=== PATIENT | male | born 1945 | race Caucasian/White ===

== ENCOUNTER → 2016-11-27 | Outpatient (CLI) | payer OTHER, MEDICARE ==
[2016-11-27 08:49] LABS: HEMATOCRIT 42.6 % (42.0-52.0); HEMOGLOBIN 14.6 g/dL (14.0-18.0); MEAN CORPUSCULAR HEMOGLOBIN 30.9 PG (27-31); MEAN CORPUSCULAR HGB CONC 34.3 g/dL (33-37); MEAN PLATELET VOLUME 10.2 FL (7.4-12.2); RDW COEFFICIENT OF VARIATION 12.7 % (11.5-14.5); RED BLOOD COUNT 4.73 10^6/uL (4.70-6.10); WHITE BLOOD COUNT 4.1 10^3/uL (4.8-10.8)
[2016-11-27 09:05] LABS: BILIRUBIN,TOTAL 0.6 mg/dL (0.3-1.2); BUN/CREATININE RATIO 13.57 (6-20); CALCIUM 9.4 mg/dL (8.7-10.7); CREATININE 1.4 mg/dL (0.70-1.50); LDL CHOLESTEROL,CALCULATED 76.2 mg/dL; POTASSIUM 4.9 meq/L (3.8-5.2); TOTAL PROTEIN 7.1 g/dL (6.1-8.0)
== END ==
LOC: MOB LAB 07:58
PROVIDERS: ATTEND Family Medicine
DX: E78.5 Hyperlipidemia, unspecified (principal); Z12.5 Encounter for screening for malignant neoplasm of prostate
CPT/HCPCS: 36415; 80053; 80061; 84443; 85027; G0103

== ENCOUNTER 2017-04-07 10:04 | Emergency (ER) | payer OTHER, MEDICARE ==
[2017-04-07 10:26] VITALS: RESP 16; TEMP 96.7
[2017-04-07 10:39] LABS: BILIRUBIN,URINE NEGATIVE (NEG); CLARITY,URINE CLEAR (CLEAR); COLOR,URINE YELLOW; GLUCOSE, URINE (UA) NEGATIVE (NEG); NITRATE,URINE NEGATIVE (NEG); OCCULT BLOOD,URINE NEGATIVE (NEG); PH,URINE 6.5 (5.0-8.5); PROTEIN,URINE NEGATIVE (NEG); UROBILINOGEN,URINE 0.2 mg/dL (0.2)
[2017-04-07 10:43] LABS: SQUAMOUS EPITHELIAL CELL,UR RARE; URINE SAMPLE TYPE VOIDED SPECIMEN; WBC,URINE 0-2
--- NOTE | 2017-04-07 11:12 | DI ---
HISTORY: Back pain. FINDINGS: There is advanced degeneration. The aorta is calcified. There is obliquity of the vertebr al bodies, which makes it difficult to assess. No obvious loss of vertebral body height. There is facet arthropathy. IMPRESSION: 1. Advanced degeneration. 2. Aorta is calcified. 3. In elderly patients with back pain, I would have a low threshold for CT or MRI.
--- NOTE | 2017-04-07 11:13 | PDOC ---
Back Pain / Injury HPI - General Chief Complaint: Neck / Back Complaint Stated Complaint: back pain Date Seen by Provider: 04/07/17 Time Seen by Provider: 10:10 Source: Patient, Spouse Exam Limitations: POSITIVE: No limitations Nurse's Notes Reviewed & Considered: Yes - History of Present Illness Initial Comments: The patient is a 71 year old male. Yesterday he was shoveling some rubble and as he torqued his torso he developed an abrupt onset of pain in the left paralumbar area and over the posterior superior iliac crest area. He states that his back pain in this area is exacerbated by bending and turning and walking and is relieved by lying down, especially flat on his back. Patient has no sensory, motor or radicular symptoms. No urinary symptoms. No GI or symptoms. No falls. Patient has a history of hypertension and states he had a heart attack in 2001 and subsequently had to coronary artery stents placed. He' s also had a laparotomy for "a twisted bowel", and subsequently had surgery for a postsurgical hernia repair. Body Location Affected: REPORTS: Back Timing: REPORTS: Abrupt Duration: <24 hours Severity: Moderate Quality: REPORTS: "Pain", Sharpness Context: REPORTS: Activity (Onset of pain was abruptly while he was shoveling up some rubble), Turning Location at Time of Onset: REPORTS: Home Modifying Factors: improves with: Lying down (Pain is relieved by lying down, especially flat on his back), Movement (Pain is exacerbated by bending and torsion of his torso) Associated Symptoms: REPORTS: Denies symptoms Similar Symptoms Previously: No Recent Care Received: REPORTS: Denies Any Prior Injuries Related to Current Complaint?: No - Patient Home Medications Home Medications: Home Medications Aspirin [Aspir 81] 81 mg PO BID #60 11/10/11 Lisinopril 1 tab PO DAILY #90 tab 11/27/16 Metoprolol Tartrate 1 tab PO BID #180 tab 11/27/16 Pantoprazole Sodium [Protonix] 1 tab PO BID #180 tab 11/27/16 Pravastatin Sodium [Pravachol] 1 tab PO DAILY #90 tab 11/27/16 Nitroglycerin 0.4 mg BUCCAL ONCE #25 tab 12/22/16 - Patient Allergies Allergies/Adverse Reactions: Allergies Allergy/AdvReac Type Severity Reaction Status Date / Time Penicillins AdvReac Intermediate DIZZINESS Verified 04/07/17 10:06 FAINTING Past Medical History - heen HEENT History: Denies History, Hard of Hearing, Deaf, Dentures/Partials Additional HEENT History: UPPERS AND LOWERS Cardiovascular History: Hypertension, Previous MO, Arrhythmia, Hyperlipidemia Additional Cardiovasular History: 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 2002- 2 STENTS PLACED FOR MO Respiratory History: Denies History, Snoring Gastrointestinal History: GERD, Diverticulitis, Peptic Ulcer Disease, GI Bleed Additional Gastrointestinal History: DYSPHAGIA Genitourinary History: Denies History Endocrine History: Denies History Musculoskeletal History: Arthritis, Back Injury Prosthesis or Implant: No Neurological History: Denies History Blood Disorders: Denies History Psychiatric History: Denies History History of Sexually Transmitted Diseases: No Male Reproductive History: Denies History Cancer History: Denies History In Past Year Been Physically Harmed or Verbally Threatened: No History of MDRO: No History of Other Communicable Diseases: No Tobacco Use: Former Smoker Alcohol Use: Occasionally Type of alcohol normally used: Beer Substance Use Type: None Previous Surgical History: Yes Type / Date of Surgery: COLONOSCOPY/ EXPLORATORY LAP/TWISTED BOWEL, STENTS FOR MO, TONSILLS, INCISIONAL HERNIA REPAIR, FOREIGN BODY REMOVAL EGD Anesthesia Reactions: No Malignant Hyperthermia: No Significant Family History: No pertinent family hx Past Medical History Reviewed: Reviewed - No Changes ROS - Limitations ROS Limitations: No Limitations Constitution: REPORTS: Denies Symptoms Cardiovascular: REPORTS: Denies Cardiac Symptoms Respiratory: REPORTS: Denies Resp Symptoms Neurological: REPORTS: Denies Neuro Symptoms Gastrointestinal: REPORTS: Denies GI Symptoms Endocrine: REPORTS: Denies Symptoms Musculoskeletal: REPORTS: Back Pain (Left lower paralumbar area and over the posterior superior iliac crest, left), Recent Injury (As above; see history of present illness.) Genitourinary: REPORTS: Denies Symptoms Eyes: REPORTS: Denies Symptoms ENT: REPORTS: Denies Symptoms Skin: REPORTS: Denies Skin Symptoms Lympathic: REPORTS: Denies Lympathic Symptoms Immunologic: POSITIVE: Denies Symptoms Psychiatric: POSITIVE: Denies Psych Symptoms Back Physical Assessment - General Appearance General Appearance: REPORTS: Alert, Cooperative, No Acute Distress, No Evidence of Trauma - Neck Neck: POSITIVE: Non Tender, Painless ROM, Trachea Midline, Nexus Criteria Negative - Respiratory / CVS Respiratory / CVS: POSITIVE: Chest Non Tender, No Ecchymosis, Breath Sounds Normal, No Respiratory Distress, Heart Sounds Normal, Regular Rate/Rhythm - Abdomen Abdomen: Soft: (All Quadrants), Normal Bowel Sounds: (All Quadrants), Denies Tenderness: (All Quadrants), No Splenomegaly: (All Quadrants), No Hepatomegaly: (All Quadrants), No Guarding: (All Quadrants), No Rebound: (All Quadrants), No Palpable Pulse: (All Quadrants), No Palpabale Mass: (All Quadrants), No Distention: (All Quadrants), No Rigidity: (All Quadrants) - Back Back: REPORTS: No CVA Tenderness, No Vertebral Tenderness, Muscle Spasm (Left paralumbar area), Limited ROM, See Diagram. DENIES: Non Tender (Somewhat tender on palpation over the posterior superior iliac crest, left, medially), Painless ROM (Flexion and torsion of lumbar area uncomfortable/painful), Vertebral Pt. Tenderness, CVA Tenderness (R), CVA Tenderness (L) - Skin Skin: REPORTS: Intact, Normal For Race, Warm, Dry, No Rash - Extremities Extremity Assessment: Non-Tender: (ALL), Normal ROM: (ALL), No Edema: (ALL), Normal Inspection: (ALL), No Swelling: (ALL) Musculoskeletal: REPORTS: Back Pain (Left paralumbar pain as above) Peripheral Pulses: Radial (R): 2+, Radial (L): 2+ - Neurological / Psychological Neuro / Psych: POSITIVE: Oriented X3, compression molding machine tender Normal As Tested, Motor Normal, Sensation Normal, Mood Appropriate, Affect Appropriate, Reflexes Normal Images - Complete Complete: 1 - Area of discomfort and some discomfort on palpation Back Progress - Results Reviewed by me Xrays/CTs/US Reviewed: Yes Discussed with Radiologist: No Radiology Findings: X-ray lumbosacral spine shows some degenerative changes and vascular calcifications. No compression fractures or other abnormalities appreciated. Radiologist interpretation pending. Lab Results Reviewed: Yes (urine analysis normal) Lab Results:: Laboratory Results 04/07/17 Range/Units 10:36 Ur Collection Type Voided specimen Urine Color Yellow Urine Clarity Clear (CLEAR) Urine pH 6.5 (5.0-8.5) Ur Specific [place] 1.020 (1.005-1.030) Urine Protein Negative (NEG) mg/dl Urine Glucose (UA) Negative (NEG) mg/dL Urine Ketones Negative (NEG) Urine Occult Blood Negative (NEG) Urine Nitrate Negative (NEG) Urine Bilirubin Negative (NEG) Urine Urobilinogen 0.2 (0.2) mg/dL Ur Leukocyte Esterase Negative (NEG) Urine RBC None (NONE) /hpf Urine WBC 0-2 (NONE) Ur Squamous Epith Cells Rare (NONE) Ur Renal Epithelial Cell None (NONE) Urine Crystals None Urine Bacteria None (NONE) Urine Casts None Urine Mucus None (NONE) Urine Trichomonas None (NONE) Urine Yeast None (NONE) - Patient's Progress Pain Medication Addressed: POSITIVE: Yes (Recommended Tylenol, 1000 mg every 6 hours as necessary) School/Work Release Addressed: POSITIVE: Not Applicable Re-Examine Time: 11:00 Status: POSITIVE: Unchanged, Re-Examined - Consult Counseled: POSITIVE: Patient, Family, RE: Lab Results, RE: Radiology Results, RE : DX, RE: Need for F/U Patient Care Time - Estimated PCT Patient Care Time (In Minutes): 30 Vital Signs - Recent Vital Signs Vital Signs: Vital Signs (Last 8 hours) Temp Pulse Resp BP Pulse Ox 04/07/17 10:13 96.7 F L 60 16 161/84 94 - VS Reviewed Vital Signs Reviewed: Yes Discharge Clinical Impression: Lumbar strain Discharge Disposition: Discharged to Home Condition: Good Patient Instructions Given at Discharge: Low Back Strain (ED) Additional Instructions: I believe you have strained a muscle in your low back. This can be a painful injury, but I believe you'll eventually be fine. Rest flat on your back for 24- 48 hours with a small pillow underneath your knees. This will place her back in a position of maximum relaxation. Tylenol, 2 extra strength tablets every 6 hours as necessary for pain and discomfort. Warm moist compresses applied to the lower back 3 or 4 times a day. Return here anytime if condition worsens in any way. Follow-up with your primary care provider in 3 or 4 days if not improving well. Follow Up With: MINERVA RAMACHANDRAN [Primary Care Provider] - (Instructions as above. Follow-up with your primary care provider. Return here anytime if condition worsens in anyway whatsoever.)
== END 2017-04-07 11:10 | disposition home or self-care (01) ==
LOC: ER 10:04
DX: S39.012A Strain of muscle, fascia and tendon of lower back, initial encounter (principal); I10 Essential (primary) hypertension; M54.5 Low back pain; Z95.2 Presence of prosthetic heart valve; X50.1XXA Overexertion from prolonged static or awkward postures, initial encounter
CPT/HCPCS: 72100; 81001; 99283

== ENCOUNTER → 2017-04-25 | Outpatient (CLI) | payer OTHER, MEDICARE | LOC: MMPC 11:11 | PROVIDERS: ATTEND Physician Assistant | DX: L98.8 Other specified disorders of the skin and subcutaneous tissue (principal) ==

== ENCOUNTER → 2017-05-21 | Outpatient (CLI) | payer OTHER, MEDICARE | LOC: RAD 11:02 | PROVIDERS: ATTEND Physician Assistant Medical | DX: M25.522 Pain in left elbow (principal); L08.89 Other specified local infections of the skin and subcutaneous tissue | CPT/HCPCS: 99213 ==

== ENCOUNTER → 2017-05-21 | Outpatient (CLI) | payer OTHER, MEDICARE | LOC: MMPC 09:00 | PROVIDERS: ATTEND Physician Assistant Medical | DX: L08.89 Other specified local infections of the skin and subcutaneous tissue (principal) ==

== ENCOUNTER → 2017-05-31 | Outpatient (CLI) | payer OTHER, MEDICARE | LOC: MMPC 09:00 | PROVIDERS: ATTEND Physician Assistant Medical | DX: L03.114 Cellulitis of left upper limb (principal) | CPT/HCPCS: 99213; G0463 ==

== ENCOUNTER 2017-06-13 09:55 | Emergency (ER) | payer OTHER, MEDICARE ==
[2017-06-13 10:11] VITALS: RESP 16; TEMP 95.6
--- NOTE | 2017-06-13 10:21 | PDOC ---
Skin Rash/Insect/Abscess HPI - General Chief Complaint: Laceration / Wound Stated Complaint: LEFT ELBOW PAIN Date Seen by Provider: 06/13/17 Time Seen by Provider: 10:17 - History of Present Illness Initial Comments: Patient is a very nice 71-year-old gentleman who presents to the emergency department for evaluation of a wound on his left elbow that is not healing. He states that he had an injury to this elbow with a splinter inside the elbow bursa right over the olecranon greater than 20 years ago. This had formed a cyst and he had a cyst removed at the urgent care. The stitches did not hold the open wound together in the middle part of the incision and he was left with an open healing wound. This has slowly been closing but continues to drain and he is concerned that it is not healing properly. It is not causing him any pain or fever there is no redness or tenderness Have you received a tetanus shot in the past 10 years?: Yes - Patient Home Medications Home Medications: Home Medications Aspirin [Aspir 81] 81 mg PO BID #60 11/10/11 Lisinopril 1 tab PO DAILY #90 tab 11/27/16 Metoprolol Tartrate 1 tab PO BID #180 tab 11/27/16 Pantoprazole Sodium [Protonix] 1 tab PO BID #180 tab 11/27/16 Pravastatin Sodium [Pravachol] 1 tab PO DAILY #90 tab 11/27/16 Nitroglycerin 0.4 mg BUCCAL ONCE #25 tab 12/22/16 Minocycline HCl 100 mg PO BID #20 cap 05/31/17 - Patient Allergies Allergies/Adverse Reactions: Allergies Allergy/AdvReac Type Severity Reaction Status Date / Time Penicillins AdvReac Intermediate DIZZINESS Verified 06/13/17 10:07 FAINTING Past Medical History - heen HEENT History: Denies History, Hard of Hearing, Deaf, Dentures/Partials Additional HEENT History: UPPERS AND LOWERS Cardiovascular History: Hypertension, Previous DC, Arrhythmia, Hyperlipidemia Additional Cardiovasular History: 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 2002- 2 STENTS PLACED FOR DC Respiratory History: Denies History, Snoring Gastrointestinal History: GERD, Diverticulitis, Peptic Ulcer Disease, GI Bleed Additional Gastrointestinal History: DYSPHAGIA Genitourinary History: Denies History Endocrine History: Denies History Musculoskeletal History: Arthritis, Back Injury Prosthesis or Implant: No Neurological History: Denies History Blood Disorders: Denies History Psychiatric History: Denies History History of Sexually Transmitted Diseases: No Male Reproductive History: Denies History Cancer History: Denies History In Past Year Been Physically Harmed or Verbally Threatened: No History of MDRO: No History of Other Communicable Diseases: No Tobacco Use: Never Smoker Alcohol Use: Occasionally Substance Use Type: None Previous Surgical History: Yes Type / Date of Surgery: COLONOSCOPY/ EXPLORATORY LAP/TWISTED BOWEL, STENTS FOR DC, TONSILLS, INCISIONAL HERNIA REPAIR, FOREIGN BODY REMOVAL EGD Anesthesia Reactions: No Malignant Hyperthermia: No Family History of Malignant Hyperthermia: No Significant Family History: No pertinent family hx Past Medical History Reviewed: Reviewed - No Changes ROS - Limitations ROS Limitations: No Limitations Constitution: REPORTS: Denies Symptoms Cardiovascular: REPORTS: Denies Cardiac Symptoms Skin Rash/Insect/Abscess Exam - General Appearance General Appearance: REPORTS: Alert, Cooperative, No Acute Distress - Skin Skin: REPORTS: Warm, Dry, Other (Over the olecranon of his left elbow is a very small approximately 4-5 mm unhealed open spot that shows no surrounding erythema and there is a slight amount of serosanguineous drainage from this.) Skin Rash/Abscess Progress - Patient's Progress MDM / ED Course: After further questioning the and the patient it does sound like this is slowly closing in. Apparently it was about a centimeter to centimeter and a half long about a month ago and now is less than half a centimeter in width. There is no evidence of any infection the surrounding tissues look good it is draining just very slightly. Ultimately I told them I did not feel that we would benefit from trying to stitch her close this that it looks like it's healing fine and that a few more weeks time that should be completely closed in. If however it does not completely heal in I recommended they see an orthopedist for further recommendations. They also know that if they start to have signs of infection to return to the emergency department or a provider as soon as possible Patient Care Time - Estimated PCT Patient Care Time (In Minutes): 15 Vital Signs - Recent Vital Signs Vital Signs: Vital Signs (Last 8 hours) Temp Pulse Resp BP Pulse Ox 06/13/17 10:02 95.6 F L 60 16 144/92 94 - VS Reviewed Vital Signs Reviewed: Yes Discharge Clinical Impression: Healing wound Discharge Disposition: Discharged to Home Condition: Good Additional Instructions: I think the wound on your elbow is slowly healing. At this point I would recommend covering this with a clean dry dressing daily and monitor closely. If the small wound continues to slowly fill in nothing further needs to be done and it should heal itself on its own. If however the small wound does not fully close in over the next few weeks or if your elbow should become sore and red and warm you may have infection and need to be seen right away. If it is not healing like it should do not hesitate to get in with an orthopedic surgeon for evaluation. At this time I do not think you have any active infection. Follow Up With: PATIENCE SINGER [STAFF PHYSICIAN] -
== END 2017-06-13 10:22 | disposition home or self-care (01) ==
LOC: ER 09:55
DX: S51.002D Unspecified open wound of left elbow, subsequent encounter (principal); M25.522 Pain in left elbow
CPT/HCPCS: 99282